=== PATIENT | male | born 1950 | race African-American/Black ===

== ENCOUNTER 2023-10-19 14:42 | Outpatient (CLI) | payer MEDICARE, SELFPAY ==
[2023-10-19 15:03] LABS: Basophils Percent Auto 0.5 % (0.2-1.2); Eosinophils Absolute Auto 0.1 K/mm3 (0-0.3); Eosinophils Percent Auto 1.9 % (0-4.4); Hematocrit 45.9 % (42.0-52.0); Hemoglobin 14.2 g/dL (14.0-18.0); Immature Granulocyte Absolute 0.02 K/mm3 (0.00-0.031); Immature Granulocyte Percent A 0.3 % (0-0.5); Lymphocytes Absolute Auto 2.41 K/mm3 (0.9-3.2); Lymphocytes Percent Auto 38.3 % (18.3-44.2); Mean Corpuscular HGB Conc 30.9 g/dl (32-36); Mean Corpuscular Hemoglobin 27.8 pg (26-34); Mean Platelet Volume 9.4 fl (7.4-10.4); Monocytes Absolute Auto 0.6 K/mm3 (0.1-0.6); Monocytes Percent Auto 9.1 % (2.6-8.5); Neutrophils Absolute Auto 3.1 K/mm3 (1.3-6.7); Neutrophils Percent Auto 49.9 % (45.5-73.1); Platelet Count Result 259 k/mm3 (150-375); Red Cell Distribution Width 13.9 % (11.5-14.5); White Blood Count 6.3 K/mm3 (4.5-10.0)
[2023-10-19 15:19] LABS: Hemoglobin A1C 6.2 % (<5.7)
[2023-10-19 15:23] LABS: Alanine Aminotransferase 14 U/L (6-50); Alkaline Phosphatase 72 U/L (38-126); Anion Gap 9 mmol/L (8-16); Aspartate Amino Transferase 25 U/L (17-59); Bilirubin,Total 0.6 mg/dL (0.2-1.3); Blood Urea Nitrogen 20 mg/dL (9-20); Calcium 9.5 mg/dL (8.4-10.2); Carbon Dioxide 25 mmol/L (22-30); Chloride 106 mmol/L (98-107); Cholesterol 161 mg/dL (0-200); Estimated Glomerular Filt Rate 60; Glucose 110 mg/dL (65-110); HDL Direct 39 mg/dL; LDL Cholesterol Direct 91 mg/dL; Potassium 4.1 mmol/L (3.4-5.0); Sodium 140 mmol/L (137-145); Triglycerides 84 mg/dL (<150)
== END 2023-10-19 14:43 | disposition home or self-care (01) ==
PROVIDERS: PCP Internal Medicine; Visit Provider Nurse Practitioner
DX: I12.9 Hypertensive chronic kidney disease with stage 1 through stage 4 chronic kidney disease, or unspecified chronic kidney disease (principal); N18.9 Chronic kidney disease, unspecified; E11.9 Type 2 diabetes mellitus without complications
CPT/HCPCS: 36415; 80053; 80061; 83036; 85025

== ENCOUNTER 2024-07-12 13:55 | Outpatient (CLI) | payer MEDICARE, SELFPAY ==
[2024-07-12 14:32] LABS: Basophils Percent Auto 0.2 % (0.2-1.2); Eosinophils Absolute Auto 0.1 K/mm3 (0-0.3); Eosinophils Percent Auto 1.8 % (0-4.4); Hematocrit 42.8 % (42.0-52.0); Hemoglobin 13.9 g/dL (14.0-18.0); Immature Granulocyte Absolute 0.01 K/mm3 (0.00-0.031); Immature Granulocyte Percent A 0.2 % (0-0.5); Lymphocytes Absolute Auto 1.59 K/mm3 (0.9-3.2); Lymphocytes Percent Auto 35.9 % (18.3-44.2); Mean Corpuscular HGB Conc 32.5 g/dl (32-36); Mean Corpuscular Hemoglobin 28.9 pg (26-34); Monocytes Absolute Auto 0.4 K/mm3 (0.1-0.6); Monocytes Percent Auto 8.1 % (2.6-8.5); Neutrophils Absolute Auto 2.4 K/mm3 (1.3-6.7); Neutrophils Percent Auto 53.8 % (45.5-73.1); Platelet Count Result 241 k/mm3 (150-375); Red Blood Count 4.81 M/mm3 (4.6-6.20); Red Cell Distribution Width 13.2 % (11.5-14.5); White Blood Count 4.4 K/mm3 (4.5-10.0)
[2024-07-12 14:42] LABS: Hemoglobin A1C 6.8 % (<5.7)
[2024-07-12 14:45] LABS: Alanine Aminotransferase 15 U/L (6-50); Alkaline Phosphatase 65 U/L (38-126); Anion Gap 9 mmol/L (4-12); Aspartate Amino Transferase 25 U/L (17-59); Bilirubin,Total 0.5 mg/dL (0.2-1.3); Blood Urea Nitrogen 20 mg/dL (9-20); Calcium 9.4 mg/dL (8.4-10.2); Carbon Dioxide 22 mmol/L (22-30); Chloride 98 mmol/L (98-107); Cholesterol 161 mg/dL (0-200); Estimated Glomerular Filt Rate > 60; Glucose 141 mg/dL (65-110); HDL Direct 37 mg/dL; Sodium 129 mmol/L (137-145); Triglycerides 102 mg/dL (<150)
[2024-07-12 14:55] LABS: LDL Cholesterol Direct 95 mg/dL
[2024-07-12 15:15] LABS: Prostate Specific Antigen 2.7 ng/mL (< OR = 4.0)
== END 2024-07-12 13:56 | disposition home or self-care (01) ==
LOC: ANHLAB 14:02
PROVIDERS: PCP Internal Medicine; Visit Provider Clinical Nurse Specialist
DX: E11.9 Type 2 diabetes mellitus without complications (principal); E78.2 Mixed hyperlipidemia; R12 Heartburn; Z12.5 Encounter for screening for malignant neoplasm of prostate; M25.561 Pain in right knee; M25.562 Pain in left knee; I12.9 Hypertensive chronic kidney disease with stage 1 through stage 4 chronic kidney disease, or unspecified chronic kidney disease; N18.9 Chronic kidney disease, unspecified
CPT/HCPCS: 36415; 80053; 80061; 82728; 83036; 84153; 85025; G0103

== ENCOUNTER 2024-07-19 13:52 | Outpatient (CLI) | payer MEDICARE, SELFPAY ==
[2024-07-19 14:33] LABS: Anion Gap 10 mmol/L (4-12); Blood Urea Nitrogen 16 mg/dL (9-20); Calcium 9.3 mg/dL (8.4-10.2); Carbon Dioxide 23 mmol/L (22-30); Chloride 103 mmol/L (98-107); Estimated Glomerular Filt Rate > 60; Glucose 139 mg/dL (65-110); Potassium 3.9 mmol/L (3.4-5.0); Sodium 136 mmol/L (137-145)
== END 2024-07-19 13:53 | disposition home or self-care (01) ==
PROVIDERS: PCP Internal Medicine; Visit Provider Clinical Nurse Specialist
DX: E87.1 Hypo-osmolality and hyponatremia (principal)
CPT/HCPCS: 36415; 80048

== ENCOUNTER 2025-02-14 14:42 | Outpatient (CLI) | payer MEDICARE, SELFPAY ==
[2025-02-14 15:09] LABS: Basophils Percent Auto 0.2 % (0.2-1.2); Eosinophils Absolute Auto 0.1 K/mm3 (0-0.3); Eosinophils Percent Auto 1.3 % (0-4.4); Immature Granulocyte Absolute 0.01 K/mm3 (0.00-0.031); Immature Granulocyte Percent A 0.2 % (0-0.5); Lymphocytes Absolute Auto 1.28 K/mm3 (0.9-3.2); Lymphocytes Percent Auto 27.4 % (18.3-44.2); Mean Corpuscular HGB Conc 31.1 g/dl (32-36); Mean Corpuscular Hemoglobin 27.8 pg (26-34); Mean Corpuscular Volume 89.5 fl (80-100); Monocytes Absolute Auto 0.4 K/mm3 (0.1-0.6); Monocytes Percent Auto 7.9 % (2.6-8.5); Neutrophils Absolute Auto 2.9 K/mm3 (1.3-6.7); Platelet Count Result 268 k/mm3 (150-375); Red Blood Count 5.03 M/mm3 (4.6-6.20); White Blood Count 4.7 K/mm3 (4.5-10.0)
[2025-02-14 15:19] LABS: Alanine Aminotransferase 18 U/L (6-50); Albumin Level 4.1 g/dL (3.5-5.1); Alkaline Phosphatase 78 U/L (38-126); Anion Gap 17 mmol/L (4-12); Aspartate Amino Transferase 24 U/L (17-59); Bilirubin,Total 0.4 mg/dL (0.2-1.3); Blood Urea Nitrogen 16 mg/dL (9-20); Calcium 9.6 mg/dL (8.4-10.2); Carbon Dioxide 20 mmol/L (22-30); Chloride 103 mmol/L (98-107); Estimated Glomerular Filt Rate 43; Glucose 146 mg/dL (65-110); Sodium 140 mmol/L (137-145)
--- OUTSIDE RECORDS SUMMARY | 2025-02-14 16:48 | XMS_ITS | Patient Health Record ---
Author Organization [facility] As [employer] Address [address] [place] [address] Care Team Providers Care Keg Washer Name Role Phone Kait Johnson Unavailable [phone] Migration, Provider Unavailable Unavailable Allergies No Known Allergies Reason For Referral No Information Medications Medication SIG (Take, Route, Frequency, Duration) Notes Start Date End Date Status buPROPion HCl ER (XL) 150 MG 1 tablet Oral Once a day for 90 days Active Ferrous Sulfate 325 (65 Fe) MG Oral 10/19/2023 Active Rosuvastatin Calcium 10 MG Oral 10/19/2023 Active metFORMIN HCl 500 MG Oral 10/19/2023 Active Tamsulosin HCl 0.4 MG Oral 10/19/2023 Active LORazepam 2 MG 1 tablet in the morning Orally Once a day for 30 days 01/01/2025 Active Lisinopril 10 MG Oral 10/19/2023 Ac tive Wellbutrin XL 150 MG 1 tablet in the morning Oral Once a day for 90 days Active LORazepam 2 MG Take 1 tablet by jarek once daily in the morning for 30 days for 30 appt needed 12/14/2024 Active Immunizations Vaccine Route Administration Date Status Comme nts Hep A-Hep B Unknown 01/29/2009 Administered Pfizer Biontech Covid-19 Vac cine 2nd dose Unknown 08/13/2021 Administered Problems Problem Type SNOMED Code ICD Code Onset Dates Problem Status W/U Status Risk Notes Problem Mild recurrent major depression (73789070) Major depressive disorder, recurrent, mild (F33.0) 3 Active confirmed Problem Generalized anxiety disorder (42108616) Generalized anxiety disorder (F41.1) 3 Active confirmed Problem Long-term current use of drug therapy (790771956) Other long-term (current) drug therapy (Z79.899) 3 Active confirmed Encounters Encounter [facility] [address] [facility] [address] [address] 06/20/2024 Kait Johnson Major depressive disorder, recurrent, mild F33.0 ; Generalized anxiety disorder F41.1 and Other terminal manager (current) drug therapy Z79.899 [facility] [address] [place] [address] [address] 01/01/2025 Kait Johnson Major depressive disorder, recurrent, mild F33.0 ; Generalized anxiety disorder F41.1 and Other terminal manager (current) drug therapy Z79.899 [facility] [address] [address] 03/11/2024 Provider Migration [facility] [address] [address] 03/12/2024 Provider Migration [facility] [address] [address] 05/11/2024 Kait Johnson Generalized anxiety disorder F41.1 [facility] [address] [address] 12/14/2024 Kait Johnson Assessments Encounter Date Diagnosis (ICD Code) Assessment Notes Treatment Notes Treatment Clinical Notes Section Notes 05/11/2024 Generalized anxiety disorder (ICD-10 - F41.1) 06/20/2024 Major depressive disorder, recurrent, mild (ICD-10 - F33.0) 1. Recurrent major depressive episodes, mild -Wellbutrin XL 150 mg daily continue educated on all medications, benefits, side effects and risk, and educated on depression, anxiety, and , mood d/o and educated on compliance of medications, appointment's, discuss therapy, discussion with patient about course of treatment and patient instructions. obtain labs PCP 2. Generalized anxiety disorder -Lorazepam 2 mg in am continue - Maria A Herreraville Discussed and educated pt regarding benzodiazepines are generally not intended for prolonged use and that use can cause tolerance, dependence, depression, and associated memory issues including dementias (this list is not exhaustive). Benzodiazepine use is generally not recommended concurrently with pain medications and/or other controlled substances due to increased risks of profound sedation, respiratory depression, coma, and even . They are not to be used with any alcohol, as this combination can also be lethal. Patient was provided caution 3. Long-term drug therapy -patient in W/C unable to perform UDS unable to stand up long enough to give UDS per patient also have cane 06/20/2024 Generalized anxiety disorder (ICD-10 - F41.1) 1. Recurrent major depressive episodes, mild -Wellbutrin XL 150 mg daily continue educated on all medications, benefits, side effects and risk, and educated on depression, anxiety, and , mood d/o and educated on compliance of medications, appointment's, discuss therapy, discussion with patient about course of treatment and patient instructions. obtain labs PCP 2. Generalized anxiety disorder -Lorazepam 2 mg in am continue - Maria A Price Discussed and educated pt regarding benzodiazepines are generally not intended for prolonged use and that use can cause tolerance, dependence, depression, and associated memory issues including dementias (this list is not exhaustive). Benzodiazepine use is generally not recommended concurrently with pain medications and/or other controlled substances due to increased risks of profound sedation, respiratory depression, coma, and even . They are not to be used with any alcohol, as this combination can also be lethal. Patient was provided caution 3. Long-term drug therapy -patient in W/C unable to perform UDS unable to stand up long enough to give UDS per patient also have cane 01/01/2025 Major depressive disorder, recurrent, mild (ICD-10 - F33.0) 1. depressive episodes, mild - Wellbutrin XL 150 mg daily continue educated on all medications, benefits, side effects and risk, and educated on depression, anxiety, and , mood d/o and educated on compliance of medications, appointment's, discuss therapy, discussion with patient about course of treatment and patient instructions. obtain labs PCP 2. Generalized anxiety disorder -Lorazepam 2 mg in am continue - Discussed and educated pt regarding benzodiazepines are generally not intended for prolonged use and that use can cause tolerance, dependence, depression, and associated memory issues including dementias (this list is not exhaustive). Benzodiazepine use is generally not recommended concurrently with pain medications and/or other controlled substances due to increased risks of profound sedation, respiratory depression, coma, and even . They are not to be used with any alcohol, as this combination can also be lethal. Patient was provided caution 3. Long-term drug therapy -patient in W/C unable to perform UDS unable to stand up long enough to give UDS per patient also have cane 01/01/2025 Generalized anxiety disorder (ICD-10 - F41.1) 1. depressive episodes, mild - Wellbutrin XL 150 mg daily continue educated on all medications, benefits, side effects and risk, and educated on depression, anxiety, and , mood d/o and educated on compliance of medications, appointment's, discuss therapy, discussion with patient about course of treatment and patient instructions. obtain labs PCP 2. Generalized anxiety disorder -Lorazepam 2 mg in am continue - Discussed and educated pt regarding benzodiazepines are generally not intended for prolonged use and that use can cause tolerance, dependence, depression, and associated memory issues including dementias (this list is not exhaustive). Benzodiazepine use is generally not recommended concurrently with pain medications and/or other controlled substances due to increased risks of profound sedation, respiratory depression, coma, and even . They are not to be used with any alcohol, as this combination can also be lethal. Patient was provided caution 3. Long-term drug therapy -patient in W/C unable to perform UDS unable to stand up long enough to give UDS per patient also have cane 06/20/2024 Other long-term (current) drug therapy (ICD-10 - Z79.899) 1. Recurrent major depressive episodes, mild -Wellbutrin XL 150 mg daily continue educated on all medications, benefits, side effects and risk, and educated on depression, anxiety, and , mood d/o and educated on compliance of medications, appointment's, discuss therapy, discussion with patient about course of treatment and patient instructions. obtain labs PCP 2. Generalized anxiety disorder -Lorazepam 2 mg in am continue - Maria A Price Discussed and educated pt regarding benzodiazepines are generally not intended for prolonged use and that use can cause tolerance, dependence, depression, and associated memory issues including dementias (this list is not exhaustive). Benzodiazepine use is generally not recommended concurrently with pain medications and/or other controlled substances due to increased risks of profound sedation, respiratory depression, coma, and even . They are not to be used with any alcohol, as this combination can also be lethal. Patient was provided caution 3. Long-term drug therapy -patient in W/C unable to perform UDS unable to stand up long enough to give UDS per patient also have cane 01/01/2025 Other long-term (current) drug therapy (ICD-10 - Z79.899) 1. depressive episodes, mild - Wellbutrin XL 150 mg daily continue educated on all medications, benefits, side effects and risk, and educated on depression, anxiety, and , mood d/o and educated on compliance of medications, appointment's, discuss therapy, discussion with patient about course of treatment and patient instructions. obtain labs PCP 2. Generalized anxiety disorder -Lorazepam 2 mg in am continue - Discussed and educated pt regarding benzodiazepines are generally not intended for prolonged use and that use can cause tolerance, dependence, depression, and associated memory issues including dementias (this list is not exhaustive). Benzodiazepine use is generally not recommended concurrently with pain medications and/or other controlled substances due to increased risks of profound sedation, respiratory depression, coma, and even . They are not to be used with any alcohol, as this combination can also be lethal. Patient was provided caution 3. Long-term drug therapy -patient in W/C unable to perform UDS unable to stand up long enough to give UDS per patient also have cane Plan Of Treatment No Information Insurance Providers Payer Name Payer Address Payer Phone Subscriber Number Group Number Insured Name Patient Relationship to Insured Coverage Start Date Coverage End Date [employer] Medicare Replacement/ Advantage - Hmo [address] [address] [place] [address] [id number] RODERICK HELLER Self - patient is the insured Medical (General) History Medical History History ICD Code Problems: Acute COVID-19 Generalized anxiety disorder History of SARS-CoV-2 Long-term drug therapy Recurrent major depressive episodes, mil d Recurrent major depressive episodes, mod erate , Surgical History Surgery Date(Month/Year) Other 03/25/2012
--- OUTSIDE RECORDS SUMMARY | 2025-02-14 16:48 | XMS_ITS | Clinical Summary ---
Author Organization [facility] [employer] Address [address] [place] [address] Care Team Providers Care Business Intelligence Reporting Analyst Name Role Phone Antoine Asher DO Primary Care Provider [phone] Larissa Candelario RN Unavailable [phone] Source Comments [facility],non-owned Affiliates and Associated Physician Practices is amultiple site organization consisting of ambulatory clinics and hospital sitesin [place], [place], [place] and [place]. This disclosure is being madepursuant to the Care Everywhere program and may not contain all information available regarding this patient. Last updated 18.[facility] [employer] Allergies No known active allergies Medications * Be aware that medications may not be up to date on this document. Alwaysverify current medications with the patient. hydrochlorothia zide (HYDRODIURIL) 25 MG tablet Take 25 mg by mouth once daily. Active lisinopril (PRINIVIL; ZESTRIL) 10 MG tablet Take 10 mg by mouth once daily. Active LORazepam (ATIVAN) 2 MG tablet Take 2 mg by mouth once daily. Active metformin CR 24hr modified (GLUMETZA) 500 MG (MOD) tablet Take 500 mg by mouth daily with dinner. Active docusate sodium 100 MG CAPS Take 100 mg by mouth 2 times daily. 4 Active baclofen (LIORESAL) 20 MG tablet Take 1 Tab by mouth 3 times daily as needed for Muscle Spasms. 30 Tab 1 4 Active hydrocodone-sherrill taminophen (NORCO) 10-325 MG tablet Take 1 Tab by mouth every 6 hours as needed for Pain. 50 Tab 0 4 Active piroxicam (FELDENE) 10 MG capsule Take 1 Cap by mouth 2 times daily. 60 Cap 5 4 Active amitriptyline (ELAVIL) 50 MG tablet TAKE 2 TABS PO QHS FOR ONE WEEK THEN 3 TABS PO QHS FOR ONE WEEK THEN 4 TABS PO QHS THEREAFTER 120 Tab 11 4 Active amitriptyline (ELAVIL) 25 MG tablet TAKE 2 TABS PO QHS 60 Tab 11 5 Active piroxicam (FELDENE) 10 MG capsule TAKE ONE CAPSULE BY MOUTH THREE TIMES DAILY 90 Cap 11 5 Active Social History Tobacco Use Types Packs/Day Years Used Date Smoking Tobacco: Former Smokeless Tobacco: Never Alcohol Use Standard Drinks/Week Comments Yes 0 (1 standard drink = 0.6 oz pur e alcohol) Sex and Gender Information Value Date Recorded Sex Assigned at Not on file Legal Sex Male 5:52 AM ENGINEER SYSTEMS Gender Identity Not on file Sexual Orientation Not on file Occupation Industry Job Start Date Job End Date RETIRED Not on file Not on file Not on file Last Filed Vital Signs Vital Sign Reading Time Taken Comments Blood Pressure 112/71 05/25/2014 8:08 AM CDT Pulse 88 05/25/2014 8:08 AM CDT Temperature 36.7 C (98 F) 05/25/2014 8:08 AM CDT Respiratory Rate 18 05/25/2014 8:08 AM CDT Oxygen Saturation 100% 05/25/2014 8:08 AM CDT Inhaled Oxygen Concentration - - Weight 120.2 kg (265 lb) 09/17/2014 12:04 PM ENGINEER SYSTEMS Height 175.3 cm (5' 9 ) 09/17/2014 12:04 PM ENGINEER SYSTEMS Body Mass Index 39.13 09/17/2014 12:04 PM ENGINEER SYSTEMS Plan of Treatment Health Maintenance Due Date Last Done Comments HEPATITIS C SCREENING 10/29/1968 DTAP/TDAP/TD VACCINES (1 - Tdap) 1967 PNEUMOCOCCAL VACCINE 50+ (1 of 1 - PCV) 1998 ZOSTER VACCINE (1 of 2) 1998 Respiratory Syncytial Virus (RSV) Vaccine Pt: or over 60 yrs (1 - 1-dose 75+ series) 2023 COVID-19 VACCINE (2023-2 5 season) 2024 DEPRESSION SCREENING 10/25/2024 INFLUENZA VACCINE (Season Ended) 2025 HEPATITIS B VACCINE Aged Out No longe r eligible based on patient's age to complete this topic HIB VACCINE Aged Out No longer eligi ble based on patient's age to complete this topic HPV VACCINE Aged Out No longer eligi ble based on patient's age to complete this topic MENINGOCOCCAL (Group B) VACC INE SHARED DECISION-MAKING Aged Out No longer eligibl e based on patient's age to complete this topic MENINGOCOCCAL GROUPS A/C/Y/W VACCINE Aged Out No longer eligible b ased on patient's age to complete this topic [place] [address] UHC MANAGED MEDICARE ADV Advance Directives * Full Code (Latest Code Status on File) Date Activated Date Inactivated Comments 05/24/2014 11:57 AM 05/25/2014 2:55 PM Care Teams Business Intelligence Reporting Analyst Relationship Specialty Start Date End Date Antoine Asher DO PCP - General Internal Medicine 02/23/14 Larissa Candelario, RN Ad Trafficker 05/24/14
[2025-02-14 17:22] LABS: Creatinine Urine 131.1 mg/dL
[2025-02-14 17:29] LABS: MALB Creatinine Ratio 5.3 mg/g (0-30)
[2025-02-14 19:38] LABS: Hemoglobin A1C 6.6 % (<5.7)
== END 2025-02-14 14:43 | disposition home or self-care (01) ==
PROVIDERS: PCP Internal Medicine; Visit Provider Internal Medicine
DX: I10 Essential (primary) hypertension (principal); E11.9 Type 2 diabetes mellitus without complications
CPT/HCPCS: 36415; 80053; 82043; 83036; 85025

== ENCOUNTER 2025-09-05 14:29 | Outpatient (CLI) | payer MEDICARE, SELFPAY ==
[2025-09-05 15:15] LABS: Hemoglobin A1C 6.2 % (<5.7)
[2025-09-05 15:17] LABS: Anion Gap 9 mmol/L (4-12); Blood Urea Nitrogen 16 mg/dL (9-20); Calcium 9.3 mg/dL (8.4-10.2); Carbon Dioxide 24 mmol/L (22-30); Chloride 105 mmol/L (98-107); Cholesterol 142 mg/dL (0-200); Estimated Glomerular Filt Rate > 60; Glucose 108 mg/dL (65-110); HDL Direct 38 mg/dL; Potassium 4.4 mmol/L (3.4-5.0); Sodium 138 mmol/L (137-145); Triglycerides 122 mg/dL (<150)
--- OUTSIDE RECORDS SUMMARY | 2025-09-05 15:26 | XMS_ITS | Clinical Summary ---
Author Organization [facility] [employer] Address [address] [place] [address] Care Team Providers Care Bid Manager Name Role Phone Antoine Asher DO Primary Care Provider [phone] Larissa Candelario RN Unavailable Source Comments [facility],non-owned Affiliates and Associated Physician Practices is amultiple site organization consisting of ambulatory clinics and hospital sitesin [place], [place], [place] and [place]. This disclosure is being madepursuant to the Care Everywhere program and may not contain all information available regarding this patient. Last updated 18.[facility] [employer] Allergies No known active allergies Medications * [...] on file Legal Sex Male 5:52 AM REFINERY OPERATOR ALKYLATION Gender Identity Not on file Sexual Orientation [...] 120.2 kg (265 lb) 09/17/2014 12:04 PM REFINERY OPERATOR ALKYLATION Height 175.3 cm (5' 9) 09/17/2014 12:04 PM REFINERY OPERATOR ALKYLATION Body Mass Index 39.13 09/17/2014 12:04 PM REFINERY OPERATOR ALKYLATION Plan of Treatment Health Maintenance Due Date Last Done Comments HEPATITIS C SCREENING 10/29/1968 DTAP/TDAP/TD VACCINES (1 - Tdap) 1967 PNEUMOCOCCAL VACCINE 50+ (1 of 1 - PCV) 1998 ZOSTER VACCINE (1 of 2) 1998 Respiratory Syncytial Virus (RSV) Vaccine Pt: or over 60 yrs (1 - 1-dose 75+ series) 2023 DEPRESSION SCREENING 10/25/2024 COVID-19 VACCINE (2024-2 6 season) 2025 INFLUENZA VACCINE (#1) 2025 HEPATITIS B VACCINE Aged Out No [...] age to complete this topic Insurance [place] [address] UHC MANAGED MEDICARE ADV Advance Directives * Full Code (Latest Code Status on File) Date Activated Date Inactivated Comments 05/24/2014 11:57 AM 05/25/2014 2:55 PM Care Teams Bid Manager Relationship Specialty Start Date End Date Antoine Asher DO PCP - General Internal Medicine 02/23/14 Larissa Candelario, RN Embroidery Cutter 05/24/14
--- OUTSIDE RECORDS SUMMARY | 2025-09-05 15:26 | XMS_ITS | Patient Health Record ---
Author Organization [facility] As [employer] Address [address] [place] [address] Care Team Providers Care Lean Manufacturing Specialist Name Role Phone Kait Johnson Unavailable [phone] Allergies No Known Allergies Reason For Referral No Information Medications Medication SIG (Take, Route, Frequency, Duration) Notes Start Date End Date Status Ferrous Sulfate 325 (65 Fe) MG Tablet Oral 10/19/2023 Active Rosuvastatin Calcium 10 MG Tablet Oral 10/19/2023 Active LORazepam 2 MG Tablet 1 tablet in the mo rning Orally Once a day; Duration: 30 days 08/08/2025 Active Lisinopril 10 MG Tablet Oral 10/19/2023 Active Wellbutrin XL 150 MG Tablet Extended Release 24 Hour 1 tablet in the morning Oral Once a day; Duration: 90 days 08/08/2025 Active buPROPion HCl ER (XL) 150 MG Tablet Extended Release 24 Hour TAKE 1 TABLET BY MOUTH ONCE DAILY IN THE MORNING; Duration: 90 Active metFORMIN HCl 500 MG Tablet Oral 10/19/2023 Active Tamsulosin HCl 0.4 MG Capsule Oral 10/19/2023 Active Immunizations Vaccine Route Administration Date Status Comme nts Hep A-Hep B Unknown 01/29/2009 Administered Pfizer Biontech Covid-19 Vac cine 2nd dose Unknown 08/13/2021 Administered Social History Sex Assigned At : Social History Observation Description Sex Assigned At Male Social History Additional Details Category Social Info Options Details Migrated Social History Migrated Social History Alcohol Intake: None 09/05/2020,Tobacco Years: Former smoker 04/04/2021,Smoking Status: 0 10/19/2023 Problems Problem Type SNOMED Code ICD Code Onset Dates Problem Status W/U Status Risk Notes Problem Mild recurrent major depression (28096655) Major depressive disorder, recurrent, mild (F33.0) 3 Active confirmed Problem Generalized anxiety disorder (88835816) Generalized anxiety disorder (F41.1) 3 Active confirmed Problem Long-term current use of drug therapy (797468609) Other detention (current) drug therapy (Z79.899) 3 Active confirmed Encounters Encounter Location Date Provider Diagnosis [facility] [address] [address] 01/01/2025 Kait Therbushra Major depressive disorder, recurrent, mild F33.0 ; Generalized anxiety disorder F41.1 and Other detention (current) drug therapy Z79.899 [facility] [address] [address] 05/03/2025 Kait Thery Major depressive disorder, recurrent, mild F33.0 ; Generalized anxiety disorder F41.1 and Other detention (current) drug therapy Z79.899 [email or web address] [address] [place] [address] [address] 08/08/2025 Kait Thery Major depressive disorder, recurrent, mild F33.0 ; Generalized anxiety disorder F41.1 and Other intermediate manager (current) drug therapy Z79.899 [facility] [address] [address] 12/14/2024 Kait Johnson Assessments Encounter Date Diagnosis (ICD Code) Assessment Notes Treatment Notes Treatment Clinical Notes Section Notes 01/01/2025 Major depressive disorder, recurrent, mild (ICD-10 [...] give UDS per patient also have cane 05/03/2025 Major depressive disorder, recurrent, mild (ICD-10 - [...] -Lorazepam 2 mg in am continue - no refil needed today - recent filled Discussed and educated pt regarding benzodiazepines are [...] was provided caution 3. Long-term drug therapy - 08/08/2025 Major depressive disorder, recurrent, mild (ICD-10 - [...] was provided caution 3. Long-term drug therapy - 08/08/2025 Generalized anxiety disorder (ICD-10 - F41.1) 1. [...] was provided caution 3. Long-term drug therapy - 08/08/2025 Other detention (current) drug therapy (ICD-10 - Z79.899) 1. [...] was provided caution 3. Long-term drug therapy - 05/03/2025 Generalized anxiety disorder (ICD-10 - F41.1) 1. [...] -Lorazepam 2 mg in am continue - no refil needed today - recent filled Discussed and educated pt regarding benzodiazepines are [...] was provided caution 3. Long-term drug therapy - 01/01/2025 Generalized anxiety disorder (ICD-10 - F41.1) [...] per patient also have cane 01/01/2025 Other intermediate manager (current) drug therapy (ICD-10 - Z79.899) 1. [...] give UDS per patient also have cane 05/03/2025 Other detention (current) drug therapy (ICD-10 - Z79.899) 1. [...] -Lorazepam 2 mg in am continue - no refil needed today - recent filled Discussed and educated pt regarding benzodiazepines are [...] was provided caution 3. Long-term drug therapy - 08/08/2025 Other referral to the local chapter or national office of the Alzheimer's Association (3-013-358-137 0; http://www.alz .org), the Alzheimer's Disease Education and Referral Center (ADEWI) (1-116-277-297 0; http://www.gabbie .nih.gov/Alzhe imers/), Notes: referral to the local chapter or national office of the Alzheimer's Association (1-544-024629-243-384 0; http://www.alz .org), the Alzheimer's Disease Education and Referral Center (ADEAR) (3-812-739-808 0; http://www.gabbie .nih.gov/Alzhe imers/), 1. depressive episodes, mild - Wellbutrin XL [...] was provided caution 3. Long-term drug therapy - Plan Of Treatment No Information Insurance Providers Payer Name Payer Address Payer Phone Subscriber Number Group Number Insured Name Patient Relationship to Insured Coverage Start Date Coverage End Date [employer] Medicare Replacement/ Advantage - [place]mo [address] [address] [place] [phone] [id number] RODERICK HELLER Self - patient is the insured Medical (General) History Medical History History ICD Code Problems: Acute COVID-19 Generalized anxiety disorder History of SARS-CoV-2 Long-term drug therapy Recurrent major depressive episodes, mil d Recurrent major depressive episodes, mod erate , Surgical History Surgery Date(Month/Year) Other 03/25/2012
== END 2025-09-05 14:30 | disposition home or self-care (01) ==
PROVIDERS: PCP Internal Medicine; Visit Provider Internal Medicine
DX: E78.2 Mixed hyperlipidemia (principal); E11.9 Type 2 diabetes mellitus without complications
CPT/HCPCS: 36415; 80048; 80061; 82172; 83036